=== PATIENT | female | born 1980 | race Asian ===

== ENCOUNTER 2019-02-11 09:10 | Day surgery (SDC) | payer BC, MEDICAID ==
[2019-02-11] MEDS ORDERED: LIDOCAINE 4% SOLUTION 50 ML BTL (10:57)
[2019-02-11] MEDS ORDERED: MIDAZOLAM 1 MG/ML 2 ML INJ ×2 (11:45)
[2019-02-11] MEDS ORDERED: FENTAnyl 50 MCG/ML VIAL (11:45)
== END 2019-02-11 12:48 | disposition home or self-care (01) ==
LOC: GIL 09:10
DX: R19.5 Other fecal abnormalities (principal); K64.9 Unspecified hemorrhoids; K20.8 Other esophagitis
CPT/HCPCS: 43239; 84703; 88305